=== PATIENT | female | born 1960 | race Caucasian/White ===

== ENCOUNTER 2022-02-20 10:25 | Day surgery (SDC) | payer OTHER, SELFPAY ==
[2022-02-20 11:00] VITALS: BP 115/83; PULSE 96; RESP 16; TEMP 36.8; O2SAT 99; BMI 25.9
[2022-02-20] MEDS: Lactated Ringers 1,000 ML 15 ML IV (11:04)
[2022-02-20 12:05] LABS: Bedside Glucose 135 mg/dL (74-106)
[2022-02-20] MEDS: Cefazolin 2 GM in 0.9% Normal Saline 100 ML IV (12:24)
--- NOTE | 2022-02-20 12:29 | RAD_ITS ---
STUDY: X-RAY - LEFT WRIST REASON FOR EXAM: Female, 61 years old. Fracture. TECHNIQUE: 4 intraoperative view(s) of the wrist were obtained. No fluoroscopy time was provided. COMPARISON: None. FINDINGS: The study demonstrates interval placement of a metallic plate and screws along the volar aspect of the distal radius. The distal radial fracture is in normal alignment. Radiocarpal joint is maintained. There appears to be a displaced ulnar styloid fracture. Please refer to the operative report for further details. RAD/Wrist 2 Views IMPRESSION: Internal fixation of a distal radial fracture in the OR. Electronically Signed: Demarco Anaya DO at 17:51 EDT ,
--- NOTE | 2022-02-20 13:56 | OP.PCM_ITS ---
Report of Operation Date of Procedure: 02/20/22 Description of Surgical Findings:: Preoperative diagnosis: Left intra-articular distal radius fracture Postoperative diagnosis: Left intra-articular distal radius fracture Procedure: Open reduction internal fixation left intra-articular distal radius fracture greater than 3 parts Surgeon: Moiz Neri DO Certified Medical Technician: Maci Shore PA-C Anesthesia: General endotracheal with axillary block Anesthesiologist: Dr. Cool Complications: None apparent Drains: None Estimated blood loss: 10 cc Urinary output: None recorded IV fluids: Per anesthesia record Specimens: None Surgical implants: [employer] narrow 3-hole volar locking plate left Surgical indications: This is a 61-year-old female seen in outpatient setting after a fall on outstretched left hand. She sustained a intra-articular displaced distal radius fracture at that time. She was splinted in the emergency department. I saw the patient in the outpatient setting. X-rays were reviewed. X-rays demonstrated significant dorsal angulation and depression of the radial styloid. Given her age and activity level, I recommended operative intervention in the form of left distal radius open reduction internal fixation. Risk, benefits, terms the procedure reviewed with the patient at length. She agreed to proceed. Risks included but were not limited to bleeding, infection, loss of life or limb, need for additional surgery, nonhealing wound or bone, neurovascular injury, DVT or PE, risk of anesthesia, stiffness. Patient expressed understands risk wish to proceed with surgery. Description of procedure: Patient was seen in preoperative holding area. She was identified by name, medical record number, date of . The operative extremity was marked with a surgical marker. We confirmed informed consent with the patient and all questions were answered to his satisfaction. An axillary block was administered prior to the procedure by anesthesia staff. At time of her procedure, patient was brought to the operative suite and positioned supine on a standard operating table. All bony prominences were well-padded. General anesthesia was administered. After adequate anesthesia, a well-padded pneumatic tourniquet was applied to the upper arm of the operative extremity. We then spun the bed 90 degrees. We prepped and draped the operative extremity in a normal, sterile orthopedic fashion. We then performed a timeout with all parties in attendance in agreement the side, site, and operation be performed. No concerns were voiced and we elected to proceed. 2 g Ancef was administered for antibiotic prophylaxis prior to the incision by anesthesia staff. I first exsanguinated the operative extremity with an Esmarch bandage. Tourniquet was inflated to 250 mmHg. Esmarch was removed. I planned a standard FCR approach over the flexor carpi radialis tendon along the volar wrist. Of note, patient had an FCR harvest from her previous LR TI of her first [facility]. Previous scars were utilized to approximate the location of the FCR tendon sheath. Skin was sharply incised with a 15 blade scalpel down to the level of the tendon sheath/antebrachial fascia scar tissue was encountered at this level. I sharply split the scar tissue in the interval between the radial neurovascular bundle and the median nerve. The flexor pollicis longus muscle belly was then encountered and retracted ulnarly. The pronator quadratus was then encountered. A self-retaining retractor was placed deep. Performed an L- shaped tenotomy of the pronator quadratus and subperiosteally elevated it ulnarly. This exposed the fracture site. The volar cortex appeared to be nearly entirely intact. There is a fracture line traversing the radial column as well as dorsal comminution involving both columns. I performed a provisional closed reduction with ulnar deviation and volar translation of the carpus. This was held in place by a K wire. Reduction appeared appropriate. I then selected a 3 hole volar locking plate narrow on the left side from [employer]. This was held in place with K wires. Appropriate positioning was confirmed. I compressed the plate down to bone with a bicortical shaft screw. I compressed the distal portion of the bone with a bicortical cortex screw which was later exchanged for locking screw unicortically. I then placed locking screws in the distal row. I placed unicortical locking screws in the radial styloid under fluoroscopic guidance utilizing the variable angle guide. I then placed an additional cortex screw in the most proximal hole of the plate and a unicortical locking screw in the most distal shaft screw hole. Final fluoroscopic images were obtained. Reduction appeared appropriate as well as hardware position and size. I thoroughly irrigated the wound with Irrisept and normal saline solution. Tourniquet was deflated. Hemostasis was excellent. There was good return of perfusion to the hand. I then reapproximated the dermis with a buried 3-0 Vicryl suture. Skin was finally reapproximated with a running subcuticular 4-0 Monocryl and skin glue. Sterile compression dressing was then applied. A well-padded volar fiberglass short arm splint was applied. Patient tolerated procedure well without apparent complication. She was safely extubated in the operative suite and transferred to her gurney and subsequently to PACU in stable condition. Intraoperative medications: 2 g Ancef prior to incision IV Need for skilled preschool assistant director: Maci Shore PA-C was critical to the outcome of the case. During the course of the procedure the physician preschool assistant director played a vital role. Her intimate knowledge of my steps in the procedure aided in safe and expedient completion of the procedure. The PA played a vital role in positioning particularly in obtaining the appropriate positioning. The PA was also vital in the retraction of soft tissues during the exposure and protecting vital structures. The PA was also vital and protecting soft tissues during times of fracture reduction and hardware placement she also played a vital role in closure and splint application with myself. Post Operative Plan: Weightbearing: Nonweightbearing operative extremity Antibiotics: 2 g Ancef IV x 1 dose preoperatively DVT Prophylaxis: Aspirin 81 mg twice daily to start tomorrow Dubois: None Dressing: Maintain splint, keep it clean dry and intact until follow-up X-Rays: 2 weeks postop in the office Pain Medication: Refill of oxycodone provided and sent to the pharmacy today Follow-up: 2 weeks post-operatively with me in the office
--- NOTE | 2022-02-20 13:56 | DCINST_ITS ---
Discharge Instructions Follow Up Care Test Results: Test results from this visit will be discussed in further detail at your follow- up appointment, if applicable. Discharge Plan Admission Primary Reason for Your Visit: Left wrist fixation Attending Provider: Moiz Neri Primary Care Provider: Colin Phan Instructions Additional Instructions / Restrictions: Follow preprinted instructions from your surgeons office Discharge Orders/Prescriptions Prescriptions: New oxycodone 5 mg tablet 5 mg PO Q4H PRN (Reason: pain) 7 Days Qty: 42 0RF Continued metformin 500 mg Tablet 500 mg PO DAILY citalopram [Celexa] 40 mg Tablet 40 mg PO DAILY lisinopril 20 mg Tablet 20 mg PO DAILY simvastatin 40 mg Tablet 40 mg PO DAILY montelukast [Singulair] 10 mg Tablet 10 mg PO DAILY loratadine [Claritin] 10 mg Tablet 10 mg PO DAILY Referrals / Follow Up: Colin Phan MD [Primary Care Provider] - Moiz Neri DO [Med Staff - Active Staff] - Within 2 Weeks Disposition Disposition (needs filled in before D/C Order can be placed): Home, Self Care
[2022-02-20 14:11] VITALS: BP 108/93; BP 115/83; PULSE 90; RESP 18; TEMP 36.5; O2SAT 95
[2022-02-20 14:15] VITALS: BP 110/96; BP 115/83; PULSE 99; RESP 16; O2SAT 91
[2022-02-20 14:30] VITALS: BP 115/83; BP 88/55; PULSE 95; RESP 16; O2SAT 92
[2022-02-20 14:45] VITALS: BP 115/83; BP 92/66; PULSE 92; RESP 16; TEMP 37.2; O2SAT 94
[2022-02-20 14:55] VITALS: BP 100/70; BP 115/83; PULSE 88; RESP 16; TEMP 36.6; O2SAT 98
== END 2022-02-20 15:17 | disposition home or self-care (01) ==
LOC: SDC 10:33 → AC 10:34
PROVIDERS: PCP Family Medicine; Visit Provider Student in an Organized Health Care Education/Training Program
PROC: (CPT 25609; principal; 2022-02-20 11:35)
DX: S52.612A Displaced fracture of left ulna styloid process, initial encounter for closed fracture (principal); E11.9 Type 2 diabetes mellitus without complications; M19.90 Unspecified osteoarthritis, unspecified site; J45.909 Unspecified asthma, uncomplicated; I10 Essential (primary) hypertension; E66.3 Overweight; Z68.26 Body mass index [BMI] 26.0-26.9, adult; F41.9 Anxiety disorder, unspecified; E78.00 Pure hypercholesterolemia, unspecified; Z79.899 Other long term (current) drug therapy; Z79.84 Long term (current) use of oral hypoglycemic drugs
CPT/HCPCS: 25609; 01830; 73100; 76000; 82962; C1713; J7120; J2405